=== PATIENT | male | born 1980 | race Hispanic/Latino ===

== ENCOUNTER 2022-05-13 15:52 | Emergency (ER) | payer SELFPAY ==
[2022-05-13 16:06] VITALS: BP 140/83; PULSE 64; RESP 16; TEMP 36.9; O2SAT 99
--- NOTE | 2022-05-13 16:37 | ED.EYEPROB ---
HPI - Eye Problem General Chief complaint: Eye Problems Stated complaint: feeling of contaminants in right eye Time Seen by Provider: 05/13/22 16:45 Source: patient and RN notes reviewed Mode of arrival: ambulatory Limitations: no limitations History of Present Illness HPI Narrative: 41-year-old male presents concern for foreign body to the right eye. He reports prior to arrival he was working on a car when chills when it shattered he feels like he has dirt in his right eye. Patient wears glasses, is not wearing glasses today. He reports vision is blurry in both eyes due to not wearing his glasses. chief complaint: foreign body Related Data Home Medications Medication Instructions Recorded Confirmed atenolol 50 mg-chlorthalidone 25 tablet 05/13/22 mg tablet montelukast 10 mg tablet mg 05/13/22 Allergies Allergy/AdvReac Type Severity Reaction Status Date / Time No Known Allergies Allergy Verified 05/13/22 16:11 Review of Systems Review of Systems: CONSTITUTIONAL: Denies malaise, chills, sweats, or fever. EYES: Denies visual changes. Reports feeling a foreign body in the right eye ENT: Denies rhinorrhea, congestion, sinus pain, otalgia or sore throat. SKIN: He denies sensation of skin foreign body NEUROLOGIC: Reports headache. All systems reviewed & are unremarkable except as noted in HPI and below PMFSH Comments At time of signature, agree with nursing past medical, surgical, social and family history. There is no relevant family history pertinent to the presenting complaint Exam Narrative: GENERAL: Well-appearing, well-nourished, and in no acute distress. HEAD: Normocephalic, atraumatic. EYES: PERRLA, sclera clear, and EOMI. No nystagmus. Right sclera mildly injected generally, no local injection. No foreign body noted in the eye upon extensive examination. No corneal abrasion noted upon Wood's lamp exam. Small irregularity noted to the lower eyelid with small amount of edema without any foreign body visible or palpable. No periorbital edema noted. ENT: Nares clear, turbinates pink, no rhinorrhea or epistaxis. Mucous membranes moist. TM pearly moura with sharp light reflex bilaterally; no tragal tenderness. NECK: Supple. CHEST: No respiratory distress. Speaks in full sentences. HEART: Regular rate and rhythm. SKIN: Warm, dry. Very small shards of glass noted on the forehead and right eyebrow NEURO: Alert and oriented x3. PSYCH: Normal mood and affect Course Course Emergency Course: Glass shards removed from eyebrow hair and forehead without any evidence of deep penetration, suction used, sticky tape used. Patient is aware of diagnosis, understands and agrees to treatment plan. Anticipatory guidance given. Patient agrees to follow-up as directed and is aware of reasons to seek care at the emergency department. Portions of this record may have been created with voice recognition software Level of Care: Express Care Visit Vital Signs Vital signs: Vital Signs Temperature 98.5 F 05/13/22 16:06 Pulse Rate 64 05/13/22 16:06 Respiratory Rate 16 05/13/22 16:06 Blood Pressure 140/83 05/13/22 16:06 Pulse Oximetry 99 05/13/22 16:06 Oxygen Delivery Room Air 05/13/22 16:06 Temperature 98.5 F 05/13/22 16:06 Pulse Rate 64 05/13/22 16:06 Respiratory Rate 16 05/13/22 16:06 Blood Pressure 140/83 05/13/22 16:06 Pulse Oximetry 99 05/13/22 16:06 Oxygen Delivery Room Air 05/13/22 16:06 Reviewed. Procedures FB Removal Eye Foreign Body #1: Foreign Body Removal Date: 05/13/22 Foreign Body Removal Time: 16:45 Time Out performed: Yes Location: eye (R) Topical anesthetic used: tetracaine Foreign body: other (None noted) Evidence of corneal penetration: No Technique: irrigation and cotton tip swab Post-procedure medication: ophthalmic antibiotic Foreign Body Removal Narrative: Tetracaine 1 gtt inst
--- NOTE | 2022-05-13 16:51 | PC.NURSE ---
moved to 1 about 1645.
--- NOTE | 2022-05-13 16:51 | PC.NURSE ---
eye exam in progress by molder apprentice.
== END 2022-05-13 17:19 | disposition home or self-care (01) ==
PROVIDERS: Emergency Provider Nurse Practitioner
DX: S00.251A Superficial foreign body of right eyelid and periocular area, initial encounter (principal); X58.XXXA Exposure to other specified factors, initial encounter
CPT/HCPCS: 99213; A9270; G0463

== ENCOUNTER 2024-12-27 10:19 | Emergency (ER) | payer SELFPAY ==
--- NOTE | ~2024-12-27 | XR_ITS ---
EXAMINATION: XR ankle LT min 3V, 12/27/2024 10:34 CDT HISTORY: LT ankle pain and swelling lateral aspect, twisted yesterday COMPARISON: No comparisons available. Findings: No acute fracture or malalignment. No significant degenerative changes. Soft tissues unremarkable. Impression: No acute fracture or malalignment. Reviewed, dictated and finalized at location P. Impression: No acute fracture or malalignment.
[2024-12-27 10:28] VITALS: BP 131/84; PULSE 67; RESP 18; TEMP 36.7; O2SAT 98
--- NOTE | 2024-12-27 10:34 | ED_ITS ---
HPI - Extremity Injury (Lower) General Chief Complaint: Extremity Injury, Lower Stated Complaint: Left Ankle Pain Time Seen by Provider: 12/27/24 10:35 Source: patient Mode of arrival: ambulatory Limitations: no limitations History of Present Illness HPI Narrative: 44-year-old male presents with pain and swelling to left ankle. patient stepped out of work truck today and rolled ankle. Ambulatory with limp. All systems reviewed and negative except as noted above. Related Data Home Medications ?Medication ?Instructions ?Recorded ?Confirmed ?Last Taken ?Type atenolol 50 mg-chlorthalidone 25 tablet 05/13/22 Unkn own History mg tablet Allergies Allergy/AdvReac Type Severity Reaction Status Date / Time guaifenesin (From Mucinex) AdvReac Dizziness Verified 12/27/24 10:53 PMFSH Comments At time of signature, agree with nursing past medical, surgical, social and family history. There is no relevant family history pertinent to the presenting complaint. Exam Narrative: GENERAL: This is a well-nourished, well-developed patient, in no apparent distress. HEAD: normocephalic, atraumatic. EYES: PERRL. Sclera clear/white. Vision is grossly intact. EARS: External ears normal NOSE: External nose normal NECK: Neck supple, non-tender without lymphadenopathy, masses or thyromegaly. CARDIOVASCULAR: Regular rate and rhythm without murmurs, gallops, or rubs. RESPIRATORY: Clear to auscultation. Breath sounds equal bilaterally. No wheezes, rales, or rhonchi. SKIN: warm, Dry, intact with no suspicious lesions or rash, good texture and turgor. NEURO: awake, alert, and oriented to person, place and time. There were no obvious focal neurologic abnormalities. EXTREMITIES:tenderness to lateral malleolus and ATFL. no instability noted. ROM decreased due to pain. distal NVintact. Course Course Level of Care: Express Care Visit Vital Signs Vital signs: Vital Signs Temperature 36.7 C 12/27/24 10:28 Pulse Rate 67 12/27/24 10:28 Respiratory Rate 18 12/27/24 10:28 Blood Pressure 131/84 12/27/24 10:28 Pulse Oximetry 98 12/27/24 10:28 Oxygen Delivery Room Air 12/27/24 10:28 Temperature 36.7 C 12/27/24 10:28 Pulse Rate 67 12/27/24 10:28 Respiratory Rate 18 12/27/24 10:28 Blood Pressure 131/84 12/27/24 10:28 Pulse Oximetry 98 12/27/24 10:28 Oxygen Delivery Room Air 12/27/24 10:28 Reviewed MDM - Extremity Injury (Lower) MDM Narrative Medical decision making narrative: x-ray of left ankle negative for fracture. Patient placed in a strep and given crutches instructions. Recommend rest, ice, elevation, compression. Will follow up with primary care physician if pain is not improving. Differential Diagnosis Differential diagnosis: Likely ankle sprain and strain and ankle fracture Imaging Data My impression: Agree with radiologist Radiologist's impression: EXAMINATION: XR ankle LT min 3V, 12/27/2024 10:34 CDT HISTORY: LT ankle pain and swelling lateral aspect, twisted yesterday COMPARISON: No comparisons available. Findings: No acute fracture or malalignment. No significant degenerative changes. Soft tissues unremarkable. Impression: No acute fracture or malalignment. Discharge Plan Discharge Clinical Impression: Left ankle sprain Patient Disposition: Home Condition: Stable Instructions: Ankle Sprain (ED) Additional Instructions: the x-ray of your ankle was negative for fracture. Take ibuprofen or Tylenol every 6-8 hours as needed for pain. Apply ice as needed for pain. Elevate when at rest. Follow-up with your primary care physician if symptoms are not improving. Patient Language: Grenadian Prescriptions: No Action atenolol-chlorthalidone 50-25 mg tablet Follow-up/Referrals: Hawa,CORY Murillo [Primary Care Provider] Stand Alone Forms: Work/School Release IP Time of Disposition: 11:05
== END 2024-12-27 11:16 | disposition home or self-care (01) ==
PROVIDERS: Emergency Provider Nurse Practitioner Family; PCP Registered Nurse
DX: M25.572 Pain in left ankle and joints of left foot (principal); X50.0XXA Overexertion from strenuous movement or load, initial encounter
CPT/HCPCS: 73610; 99213; G0463